=== PATIENT | male | born 1980 | race African-American/Black ===

== ENCOUNTER 2017-06-15 13:10 | Emergency (ER) | payer BC, SELFPAY ==
[~2017-06-15] VITALS: Ht 177.8 cm; Wt 84.0 kg
[2017-06-15 13:11] VITALS: BP 117/75
[2017-06-15] MEDS ORDERED: TETRACAINE 0.5% OPHTH DROPS 4ML RIGHTEYE ONE (15:15)
[2017-06-15] MEDS ORDERED: FLUORESCEIN SODIUM 1MG/STRIP RIGHTEYE ONE (15:15)
[2017-06-15] MEDS ORDERED: SODIUM CHLORIDE 0.9% IRRIG SOLUTION 1000ML IR ONE (15:30)
== END 2017-06-15 16:19 | disposition home or self-care (01) ==
LOC: ER 13:12
DX: H10.211 Acute toxic conjunctivitis, right eye (principal)
CPT/HCPCS: 99283